=== PATIENT | female | born 1985 | race Caucasian/White ===

== ENCOUNTER 2022-12-29 17:56 | Emergency (ER) | payer MEDICAID ==
[~2022-12-29] VITALS: Ht 157.5 cm; Wt 77.1 kg
[2022-12-29 18:14] VITALS: BP_SYST 114
--- NOTE | 2022-12-29 18:26 | NUR ---
Placed in hallway bed 2 . Placed on snath handle assembler, blood pressure machine and pulse oximeter. To gown for exam. Side rails up. Report given to Maryann.
--- NOTE | 2022-12-29 18:30 | NUR ---
Patient brought into ER by . Chief Complaint: Low back pain x mos. now is unable to sit for a long period time. [facility]. Patient reports Toradol injection today at [phone] at her doctor's office and Tylenol at 1400. Dr Jones arrived for assessment. Patient awake, alert, oriented x3, and stable.
--- NOTE | 2022-12-29 18:33 | NUR ---
ER at bedside examining patient.
--- NOTE | 2022-12-29 19:16 | NUR ---
hcg urine is negative
[2022-12-29] MEDS ORDERED: TRAM50TA2 PO (19:17)
[2022-12-29] MEDS ORDERED: NAPR-688 PO (19:17)
--- NOTE | 2022-12-29 19:45 | NUR ---
Patient given written and verbal discharge instructions and verbalizes understanding. ER MD Jones discussed with patient the results and treatment provided. Patient in stable condition. ID arm band removed. Rx of Naproxen and Toradol given. Patient educated on pain management and to follow up with PMD. Pain Scale 6/10. Opportunity for questions provided and answered. Patient awake, alert, and oriented, left with spouse walking to vehicle.
[2022-12-29 20:25] VITALS: BP_SYST 114
== END 2022-12-29 20:25 | disposition home or self-care (01) ==
LOC: SED 17:56
DX: Z00.00 Encounter for general adult medical examination without abnormal findings (principal); M53.3 Sacrococcygeal disorders, not elsewhere classified; M54.50 Low back pain, unspecified; Z79.899 Other long term (current) drug therapy
CPT/HCPCS: 72220-TC; 81025; 99283

== ENCOUNTER 2024-05-04 08:55 | Emergency (ER) | payer MEDICAID ==
[~2024-05-04] VITALS: Ht 157.5 cm; Wt 72.6 kg
[~2024-05-04 08:55] MED LIST: NAPR-688 PO; TRAM50TA2 PO
[2024-05-04 09:03] VITALS: BP_SYST 110; PULSE 72; RESP 16; TEMP 97.5; O2SAT 99
[2024-05-04] MEDS ORDERED: HYDR-3917 PO (09:59)
[2024-05-04] MEDS ORDERED: IBUP-1969 PO (09:59)
[2024-05-04 10:08] VITALS: BP_SYST 110; PULSE 72; RESP 16; TEMP 97.5; O2SAT 99
== END 2024-05-04 10:09 | disposition home or self-care (01) ==
LOC: SED 08:55
DX: S60.222A Contusion of left hand, initial encounter (principal); Z79.899 Other long term (current) drug therapy; X50.0XXA Overexertion from strenuous movement or load, initial encounter; Y93.B9 Activity, other involving muscle strengthening exercises; Y92.89 Other specified places as the place of occurrence of the external cause; Y99.8 Other external cause status
CPT/HCPCS: 99283

== ENCOUNTER 2024-07-17 08:28 | Emergency (ER) | payer MEDICAID ==
[~2024-07-17] VITALS: Ht 167.6 cm; Wt 54.4 kg
[~2024-07-17 08:28] MED LIST changes: +HYDR-3917 PO; +IBUP-1969 PO
[2024-07-17 08:41] VITALS: BP_SYST 107; PULSE 101; RESP 18; TEMP 97.5; O2SAT 98
[2024-07-17 09:41] LABS: INFLUENZA TYPE A Negative (NEGATIVE); INFLUENZA TYPE B NEGATIVE (NEGATIVE)
[2024-07-17 09:43] LABS: COVID19 ANTIGEN SOFIA FIA POSITIVE (NEGATIVE)
[2024-07-17] MEDS ORDERED: ACET-2634 PO (10:45)
[2024-07-17] MEDS ORDERED: IBUP-2018 PO (10:45)
[2024-07-17 10:58] VITALS: BP_SYST 107; PULSE 101; RESP 18; TEMP 97.5; O2SAT 98
== END 2024-07-17 10:59 | disposition home or self-care (01) ==
LOC: SED 08:28
DX: U07.1 COVID-19 (principal); Z20.822 Contact with and (suspected) exposure to COVID-19; Z79.899 Other long term (current) drug therapy; Z79.2 Long term (current) use of antibiotics
CPT/HCPCS: 36415; 99283

== ENCOUNTER 2024-08-01 07:59 | Emergency (ER) | payer MEDICAID ==
[~2024-08-01] VITALS: Ht 157.5 cm; Wt 70.8 kg
[~2024-08-01 07:59] MED LIST changes: +ACET-2634 PO; +IBUP-2018 PO
[2024-08-01 08:10] VITALS: BP_SYST 106; PULSE 78; RESP 18; TEMP 98.3; O2SAT 100
[2024-08-01 08:39] LABS: BASOPHILS # (AUTO) 0.1 K/uL (0.0-0.2); BASOPHILS % (AUTO) 1.2 % (0.0-2.0); EOSINOPHILS % (AUTO) 0.7 % (0.0-4.0); HEMATOCRIT 36.2 % (36-48); HEMOGLOBIN 12.4 g/dL (12.0-16.0); LYMPHOCYTES # (AUTO) 1.7 K/uL (1.0-5.5); LYMPHOCYTES % (AUTO) 26.4 % (20.5-51.5); MEAN CORPUSCULAR HEMOGLOBIN 30 pg (27-31); MEAN CORPUSCULAR HGB CONC 34 % (32-36); MEAN CORPUSCULAR VOLUME 87 fL (79.0-98.0); MONOCYTES # (AUTO) 0.5 K/uL (0.0-1.0); MONOCYTES % (AUTO) 8.2 % (1.7-9.3); NEUTROPHILS # (AUTO) 4.1 K/uL (1.8-7.7); NEUTROPHILS % (AUTO) 63.5 % (40.0-70.0); PLATELET COUNT (AUTO) 284 K/uL (130-430); RED BLOOD CELL COUNT(AUTO) 4.15 MIL/uL (4.2-6.2); RED CELL DISTRIBUTION WIDTH 13.3 % (9.0-15.0); WHITE BLOOD COUNT (AUTO) 6.5 K/uL (4.8-10.8)
[2024-08-01] MEDS: KETOROLAC TROMETHAMINE 60 MG/2 ML VIAL IM ONE (09:18)
[2024-08-01] MEDS: HYDROcodone/ACETAMIN 10-325 MG TAB PO ONE (09:19)
[2024-08-01 09:38] LABS: ALBUMIN 3.9 g/dL (3.4-4.8); BILIRUBIN,DIRECT 0.1 mg/dL (0.0-0.3); CALCIUM 8.7 mg/dL (8.4-11.0); CREATININE 0.93 mg/dL (0.55-1.30); POTASSIUM 3.9 mmol/L (3.5-5.1); TOTAL BILIRUBIN 0.5 mg/dL (0.0-1.0); TOTAL PROTEIN, SERUM 7.2 g/dL (6.4-8.3)
[2024-08-01 09:47] LABS: BILIRUBIN,URINE NEGATIVE (NEGATIVE); BLOOD, URINE NEGATIVE (NEGATIVE); CLARITY/URINE SL CLOUDY (CLEAR); COLOR,URINE YELLOW (YELLOW); GLUCOSE,URINE NEGATIVE (NEGATIVE); KETONES,URINE NEGATIVE (NEGATIVE); LEUKOCYTE ESTERASE ,URINE NEGATIVE (NEGATIVE); NITRITE, URINE NEGATIVE (NEGATIVE); PROTEIN URINE NEGATIVE (NEGATIVE); UROBILINOGEN,URINE 0.2 (0.2-1.0)
[2024-08-01 09:56] LABS: INR 1.1 (0.8-1.2)
[2024-08-01] MEDS ORDERED: IBUP-1969 PO (11:57)
[2024-08-01] MEDS ORDERED: HYDR-3927 PO (11:57)
[2024-08-01 12:22] VITALS: BP_SYST 104; PULSE 72; RESP 16; TEMP 98.3; O2SAT 98
== END 2024-08-01 12:20 | disposition home or self-care (01) ==
LOC: SED 07:59
DX: R10.9 Unspecified abdominal pain (principal); R30.0 Dysuria; Z79.899 Other long term (current) drug therapy; Z79.2 Long term (current) use of antibiotics
CPT/HCPCS: 99285; 74176; 80076; 80048; 81001; 82150; 83690; 85025; 85610; 85730; 36415; 96372; 83605; 82397; 81003; J1885